=== PATIENT | male | born 1950 | race Caucasian/White ===

== ENCOUNTER 2017-10-01 08:00 | Outpatient (RCR) | payer OTHER, SELFPAY ==
--- NOTE | 2017-08-26 09:25 | HP.OTEVAL ---
Patient's Visit Information ZAK STAPLETON is a 66 year old M, referred to Occupational Therapy by Carmelo Westfall MD,, with a diagnosis of Post-tramatic osteoarthritis right wrist. Date of Evaluation: 08/26/17 Occupational Therapist: Breanna Juárez, WILMA/Madeline, CHT - Subjective Subjective: This 66 year old male is well known to this facility. Pt states he struggled for over a year with right wrist pain. pt states he attempted to return to work last sping but after 5 weeks of work he was unable to cont. due to his wrist pain. Pt states at 2016 he underwent a ulnar shortening osteotomy. Pt states three weeks following sx he had very little pain and currently has little to no pain depending on what he does. 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 level with home mtg and work tasks by d/c Goal:: Pt will demo a increase in right forearm supination to 80 degress or more for pt to return to BADLS and IADLS at ind. level by d/c Goal:: pt will report pain no greater than 1/10 with use of right UE/hand for BADLS and IADLS by d/c - Rehabilitation General Assessment: S/P ulnar shortening osteotomy right forearm on 06-19-17- Pt demo with decreased right forearm supination and right photofinishing laboratory worker strength limiting pts ind. with his BADLs and IADLS. Pt demo a need for skilled OT services to return pt to PLOF Rehabilitation Potential: Good - Anticipated Interventions Anticipated Interventions: A/AAROM/PROM, Strengthening, Triggerpoint Release, Modalities, Home Program - Visit Plan Frequency: 2x /Week Duration: 6 Weeks General Plan: PT will be seen in OT 2xweek for 6 weeks for 12 visits. Therapy will initaite with ROM and PRE to return pt to PLOF- will work in a pain free ROM with PRE and use modalities as needed. TEXT: Thank you for the opportunity to evaluate your patient. For Medicare and Medicare HMO plans, please review the plan of care and approve it. It will need to be FAXED BACK to us at [phone] for Medicare purposes. Please let me know if there are questions or concerns regarding this plan of care. Physician Signature: Date:
--- NOTE | 2017-10-01 08:20 | HP.OTDCSUM ---
HP - OT D/C Summary It has been my pleasure to treat ZAK STAPLETON under orders from Carmelo Westfall MD, for the diagnosis of Post-tramatic osteoarthritis right wrist for a total of 12 visit(s). Please see the following information for a summary of their discharge status. - Overall Improvement % Improvement: 60 - due to pt need for compensitory kristal. - Objective Objective/Function: pt demo right wrist ROM 50/50. right forearm supination 60 increase from 50 degrees. 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 left beautician apprentice strength 80# - Goals Patient Goals: Regain Mobility, Regain Strength, Return to Work, Use Hand/Wrist/Arm Normally Again, Be More Independent in ADLS, Resume Former Household Responsibilities (Cooking,Cleaning,Yard, etc.) Goal:: pt will demo a increase in right beautician apprentice strength to 55# or greater for pt to return to ind. level with home mtg and work tasks by d/c Goal:: Pt will demo a increase in right forearm supination to 80 degress or more for pt to return to BADLS and IADLS at ind. level by d/c Goal:: pt will report pain no greater than 1/10 with use of right UE/hand for BADLS and IADLS by d/c - Plan Plan: D/C - D/C Information Discharge Comments: Pt had 12 OT sessions for therapy to increase his functional strength, ROM and endurance of his right UE. PT did make gains but still demo limited forearm supination and wrist flex/ext- this is limiting pt with performing his BADLS, and IADLS at [facility]- pt is using compensitory kristal. to over come the limitations. Pt did demo a increase in right functional beautician apprentice strength but still demo limited endurance in right UE and beautician apprentice strength that limits his home mtg tasks. pt reports with attempting to use a rake he only can do so for about 30 min with frequent rest periods. pt is advised to cont. with HEP and increase work tasks as able. pt has met functional goals for BADLS and IADLS - pt to cont with HEP to assist in gaining more endurance for home mtg task. pt is D/C at this time. If there are questions or concerns regarding this patient's occupational therapy, please fell free to call me at [phone]. Thank you for the referral of this patient. Sincerely, Breanna Juárez, NORMR/Madeline, CHT
== END 2017-10-01 08:52 | disposition home or self-care (01) ==
LOC: OT 08:00
PROVIDERS: Family Provider Family Medicine; PCP Family Medicine; Visit Provider Orthopaedic Surgery
DX: M19.131 Post-traumatic osteoarthritis, right wrist (principal)
CPT/HCPCS: 97018; 97110; 97140; 97166; 97168

== ENCOUNTER → 2018-02-06 06:54 | Outpatient (CLI) | payer BC, SELFPAY ==
[2018-02-06 08:30] LABS: AST(SGOT) 23 U/L (15-37); Alanine Aminotransfer ALT/SGPT 33 U/L (16-61); Albumin, Serum 3.6 g/dL (3.2-5.0); Alkaline Phosphatase 85 U/L (45-117); Anion Gap 7 (5-15); BUN 23 mg/dL (7-18); BUN/Creat Ratio 26.2 RATIO (10-20); Calcium,Total 8.5 mg/dL (8.5-10.1); Chloride 109 mmol/L (98-107); Cholesterol 166 mg/dL (200); Creatinine, Serum 0.88 mg/dL (0.70-1.30); EST Glomerular Filtration Rate 92 mL/min (>60); Est Glom Filt Rate - Afr Amer 111 mL/min (>60); Globulin 3.5 g/dL (2.2-4.2); Glucose 101 mg/dL (74-106); High Density Lipoprotein 65 mg/dL; Potassium 4.4 mmol/L (3.5-5.1); Protein, Total 7.1 g/dL (6.4-8.2); Sodium Level 141 mmol/L (136-145); Triglycerides 76 mg/dL; Very Low Density Lipoprotein 15 mg/dL (5-40)
== END ==
PROVIDERS: Family Provider Family Medicine; PCP Family Medicine; Visit Provider Family Medicine
DX: I10 Essential (primary) hypertension (principal)
CPT/HCPCS: 36415; 80053; 80061

== ENCOUNTER → 2019-02-08 07:20 | Outpatient (CLI) | payer BC, SELFPAY ==
[2019-02-08 09:19] LABS: Anion Gap 8 (5-15); BUN 18 mg/dL (7-18); BUN/Creat Ratio 21.2 RATIO (10-20); Chloride 106 mmol/L (98-107); Creatinine, Serum 0.85 mg/dL (0.70-1.30); EST Glomerular Filtration Rate 95 mL/min (>60); Est Glom Filt Rate - Afr Amer 115 mL/min (>60); Glucose 101 mg/dL (74-106); PSA,Total - Annual Screen 0.67 ng/mL (0.00-4.00); Potassium 4.4 mmol/L (3.5-5.1); Sodium Level 139 mmol/L (136-145)
== END ==
PROVIDERS: Family Provider Family Medicine; PCP Family Medicine; Referring Provider Family Medicine; Visit Provider Family Medicine
DX: I10 Essential (primary) hypertension (principal); Z12.5 Encounter for screening for malignant neoplasm of prostate
CPT/HCPCS: 36415; 80048; 84153; G0103

== ENCOUNTER → 2020-04-14 07:18 | Outpatient (CLI) | payer BC, SELFPAY ==
[2020-04-14 08:24] LABS: ALB/GLOB Ratio 1.2 RATIO (0.9-2.4); AST(SGOT) 36 U/L (15-37); Alanine Aminotransfer ALT/SGPT 46 U/L (16-61); Albumin, Serum 4.1 g/dL (3.2-5.0); Alkaline Phosphatase 74 U/L (45-117); Anion Gap 5 (5-15); BUN 22 mg/dL (7-18); BUN/Creat Ratio 25.5 RATIO (10-20); Chloride 105 mmol/L (98-107); Cholesterol 174 mg/dL (200); Creatinine, Serum 0.86 mg/dL (0.70-1.30); EST Glomerular Filtration Rate 93 mL/min (>60); Est Glom Filt Rate - Afr Amer 113 mL/min (>60); Globulin 3.5 g/dL (2.2-4.2); Glucose 103 mg/dL (74-106); High Density Lipoprotein 66 mg/dL; PSA,Total - Annual Screen 0.74 ng/mL (0.00-4.00); Potassium 4.1 mmol/L (3.5-5.1); Protein, Total 7.6 g/dL (6.4-8.2); Sodium Level 137 mmol/L (136-145); Triglycerides 71 mg/dL; Very Low Density Lipoprotein 14 mg/dL (5-40)
== END ==
PROVIDERS: PCP Family Medicine; Referring Provider Family Medicine; Visit Provider Family Medicine
DX: I10 Essential (primary) hypertension (principal); E78.5 Hyperlipidemia, unspecified; Z12.5 Encounter for screening for malignant neoplasm of prostate
CPT/HCPCS: 36415; 80053; 80061; 84153; G0103

== ENCOUNTER → 2021-04-15 09:21 | Outpatient (CLI) | payer BC, SELFPAY ==
[2021-04-15 10:49] LABS: AST(SGOT) 29 U/L (15-37); Alanine Aminotransfer ALT/SGPT 33 U/L (16-61); Albumin, Serum 3.9 g/dL (3.2-5.0); Alkaline Phosphatase 78 U/L (45-117); Anion Gap 10 (5-15); BUN 13 mg/dL (7-18); BUN/Creat Ratio 16.5 RATIO (10-20); Calcium,Total 9.1 mg/dL (8.5-10.1); Chloride 103 mmol/L (98-107); Cholesterol 150 mg/dL (200); Creatinine, Serum 0.79 mg/dL (0.70-1.30); EST Glomerular Filtration Rate 103 mL/min (>60); Est Glom Filt Rate - Afr Amer 125 mL/min (>60); Globulin 3.9 g/dL (2.2-4.2); Glucose 100 mg/dL (74-106); High Density Lipoprotein 63 mg/dL; PSA,Total- Diagnostic 0.99 ng/mL (0.0-4.0); Potassium 4.4 mmol/L (3.5-5.1); Protein, Total 7.8 g/dL (6.4-8.2); Sodium Level 137 mmol/L (136-145); Triglycerides 60 mg/dL; Very Low Density Lipoprotein 12 mg/dL (5-40)
== END ==
PROVIDERS: PCP Family Medicine; Visit Provider Family Medicine
DX: E78.5 Hyperlipidemia, unspecified (principal); Z12.5 Encounter for screening for malignant neoplasm of prostate
CPT/HCPCS: 36415; 80053; 80061; 84153

== ENCOUNTER → 2022-07-25 | Outpatient (CLI) | payer MEDICARE, SELFPAY ==
[2022-07-25 08:03] LABS: ALB/GLOB Ratio 1.1 RATIO (0.9-2.4); AST(SGOT) 15 U/L (15-37); Alanine Aminotransfer ALT/SGPT 21 U/L (16-61); Alkaline Phosphatase 82 U/L (45-117); Anion Gap 4 (5-15); BUN 20 mg/dL (7-18); BUN/Creat Ratio 23.5 RATIO (10-20); Calcium,Total 9.1 mg/dL (8.5-10.1); Chloride 104 mmol/L (98-107); Cholesterol 205 mg/dL (200); Creatinine, Serum 0.85 mg/dL (0.70-1.30); EST Glomerular Filtration Rate 94 mL/min (>60); Est Glom Filt Rate - Afr Amer 114 mL/min (>60); Globulin 3.7 g/dL (2.2-4.2); Glucose 112 mg/dL (74-106); High Density Lipoprotein 75 mg/dL; PSA,Total - Annual Screen 1.05 ng/mL (0.00-4.00); Potassium 4.2 mmol/L (3.5-5.1); Protein, Total 7.7 g/dL (6.4-8.2); Sodium Level 137 mmol/L (136-145); Triglycerides 69 mg/dL; Very Low Density Lipoprotein 14 mg/dL (5-40)
== END | disposition home or self-care (01) ==
PROVIDERS: PCP Family Medicine; Referring Provider Family Medicine; Visit Provider Family Medicine
DX: E78.5 Hyperlipidemia, unspecified (principal); Z12.5 Encounter for screening for malignant neoplasm of prostate
CPT/HCPCS: 36415; 80053; 80061; 84153; G0103

== ENCOUNTER → 2023-05-05 | Outpatient (CLI) | payer MEDICARE, SELFPAY ==
[2023-05-05 08:09] LABS: Cholesterol 171 mg/dL (200); High Density Lipoprotein 65 mg/dL; Triglycerides 116 mg/dL; Very Low Density Lipoprotein 23 mg/dL (5-40)
== END | disposition home or self-care (01) ==
LOC: LAB 06:03
PROVIDERS: PCP Family Medicine; Referring Provider Family Medicine; Visit Provider Family Medicine
DX: E78.5 Hyperlipidemia, unspecified (principal)
CPT/HCPCS: 36415; 80061

== ENCOUNTER → 2023-11-17 | Outpatient (CLI) | payer MEDICARE, SELFPAY ==
[2023-11-17 16:00] LABS: AST(SGOT) 35 U/L (15-37); Alanine Aminotransfer ALT/SGPT 37 U/L (16-61); Albumin, Serum 3.7 g/dL (3.2-5.0); Alkaline Phosphatase 83 U/L (45-117); Anion Gap 7 (5-15); BUN 18 mg/dL (7-18); BUN/Creat Ratio 22.1 RATIO (10-20); Calcium,Total 9.1 mg/dL (8.5-10.1); Chloride 105 mmol/L (98-107); Creatinine, Serum 0.81 mg/dL (0.70-1.30); EST Glomerular Filtration Rate 99 mL/min (>60); Est Glom Filt Rate - Afr Amer 120 mL/min (>60); Globulin 3.7 g/dL (2.2-4.2); Glucose 103 mg/dL (74-106); PSA,Total - Annual Screen 1.59 ng/mL (0.00-4.00); Potassium 4.2 mmol/L (3.5-5.1); Protein, Total 7.4 g/dL (6.4-8.2); Sodium Level 134 mmol/L (136-145)
== END | disposition home or self-care (01) ==
LOC: MFPLAB 11:49
PROVIDERS: PCP Family Medicine; Visit Provider Family Medicine
DX: Z12.5 Encounter for screening for malignant neoplasm of prostate (principal); E78.5 Hyperlipidemia, unspecified
CPT/HCPCS: 36415; 80053; 84153; G0103

== ENCOUNTER → 2024-10-24 | Outpatient (CLI) | payer MEDICARE, SELFPAY ==
[2024-10-24 13:42] LABS: ALB/GLOB Ratio 1.4 RATIO (0.9-2.4); AST(SGOT) 38 U/L (<=37); Alanine Aminotransfer ALT/SGPT 26 U/L (<=46); Albumin, Serum 4.4 g/dL (3.4-4.8); Alkaline Phosphatase 79 U/L (40-129); Anion Gap 14 (5-15); BUN 17 mg/dL (4-19); BUN/Creat Ratio 21.6 RATIO (10-20); Calcium,Total 9.6 mg/dL (7.6-11.0); Carbon Dioxide 22.8 mmol/L (21.0-32.0); Chloride 102 mmol/L (98-108); Cholesterol 184 mg/dL (<=200); Creatinine, Serum 0.77 mg/dL (0.70-1.20); EST Glomerular Filtration Rate 95 (>60); Globulin 3.1 g/dL (2.2-4.2); Glucose 102 mg/dL (70-99); High Density Lipoprotein 70 mg/dL; Low Density Lipoprotein Calc. 89 mg/dL; Potassium 4.3 mmol/L (3.3-5.1); Protein, Total 7.5 g/dL (5.9-8.4); Sodium Level 138 mmol/L (133-145); Total Bilirubin 0.86 mg/dL (0.00-1.30); Triglycerides 128 mg/dL; Very Low Density Lipoprotein 26 mg/dL (5-40); cholesterol:hdl ratio screen 2.65
== END | disposition home or self-care (01) ==
LOC: MFPLAB 10:33
PROVIDERS: PCP Family Medicine; Referring Provider Family Medicine; Visit Provider Family Medicine
DX: R73.01 Impaired fasting glucose (principal); Z12.5 Encounter for screening for malignant neoplasm of prostate
CPT/HCPCS: 36415; 80053; 80061

== ENCOUNTER → 2025-05-23 | Outpatient (CLI) | payer MEDICARE, SELFPAY ==
--- OUTSIDE RECORDS SUMMARY | 2025-05-23 06:16 | XMS RPT_ITS | CCD ---
Author Organization [facility] Care Team Providers Care Bowstring Maker Name Role Phone Keisha DE LEON, Dr. Blue Primary Care Provider Keisha DE LEON, Dr. Blue Attending Provider 1( [phone] Keisha DE LEON, Dr. Blue Referring Provider Mirza Valdes Referring Unavailable Mirza Valdes Attending Unavailable Mirza Valdes Primary Care Unavailable Mirza Valdes Attending Unavailable Mirza Valdes Primary Care Unavailable Medications Current Medications Medication Drug Class(es) Dates Sig (Normalized) Sig (Original) acetaminophen 325 mg / oxyCODONE hydrochloride 5 mg oral tablet (4 sources) Opioid Agonist Start: 07-23-2015 Oxycodone-Acetamin ophen 1 TABLET tablet Active 1 - 2 {tbl} PO EVERY 4 HOURS NEEDED as needed for Pain July 23, 2015 1:00am Start: 07-23-2015 take 1 tablet by coleen th every four hours as needed Oxycodone-Acetaminophen Active 1 - 2 TABLET PO EVERY 4 HOURS NEEDED July 23, 2015 1:00am aspirin 81 mg delayed release oral tablet (4 sources) Platelet Aggregation Inhibitor, Nonsteroidal Anti-inflammatory Drug Start: 07-23-2015 take 1 tablet by mouth once daily Aspirin 81 MG tablet Active 81 mg PO DAILY@0800 July 23, 2015 1:00am atorvastatin 40 mg oral tablet (4 sources) HMG-CoA Reductase Inhibitor Start: 07-23-2015 take 1 tablet by mouth at bedtime Atorvastatin 40 MG tablet Active 40 mg PO AT BEDTIME July 23, 2015 1:00am cephalexin 500 mg oral capsule (4 sources) Cephalosporin Antibacterial Start: 07-23-2015 take 1 capsule by mouth every six hours Cephalexin 500 MG capsule Active 500 mg PO EVERY 6 HOURS 40 July 23, 2015 1:00am hydroCHLOROthiazide 12.5 mg / lisinopril 20 mg oral tablet (4 sources) Thiazide Diuretic, Angiotensin Converting Enzyme Inhibitor Start: 07-23-2015 Lisinopril-Fairlee chlorothiazide 1 EACH tablet Active 1 {tbl} PO DAILY July 23, 2015 1:00am Start: 07-23-2015 take 1 tablet by coleen th once daily Lisinopril-Hydrochlorothiazide Active 1 TABLET PO DAILY July 23, 2015 1:00am Problems Active Problems Problem Classification Problem Date Documented Da te Episodic/Chronic Diabetes mellitus without complication (1 source) Impaired fasting glucose; Translations: [Impaired fasting glucose] Onset: 10-28-2024 Episodic Past or Other Problems Problem Classification Problem Date Documented Da te Episodic/Chronic Other screening for suspected conditions (not mental disorders or infectious disease) (1 source) Encounter for screening for malignant neoplasm of prostate; Translations: [Encounter for screening for malignant neoplasm of prostate] Onset: 11-26-2023 Episodic Results Test Name Value Interpretation Reference Range Facility Anion gap in Serum or Plasma Ordered By: Mirza Valdes on 10-24-2024 Anion gap [Moles/Vol] 14 mmol/L 5-15 [facility] BUN/creatinine ratioOrdered By: Mirza Valdes on 10-24-2024 Urea nitrogen/Creatinine [Mass ratio] 21.6 mg/mg High 10-20 [facility] Bilirubin, totalOrdered By: Mirza Valdes on 10-24-2024 Bilirubin [Mass/Vol] 0.86 mg/dL 0.00-1.30 [facility] Calculated very low density lipoprotein (VLDL) cholesterol measurementOrdered By: Mirza Valdes on 10-24-2024 VLDL Cholesterol 26 mg/dL 5-40 [facility] Carbon dioxide, total [Moles /volume] in Central venous bloodOrdered By: Mirza Valdes on 10-24-2024 CO2 [Moles/Vol] 22.8 mmol/L 21.0-32.0 [facility] Chloride assayOrdered By: Maura Valdes on 10-24-2024 Chloride [Moles/Vol] 102 mmol/L 98-108 [facility] Comprehensive Metabolic Prof ilon 10-24-2024 Albumin [Mass/Vol] 4.4 g/dL Normal 3.4-4.8 [facility] Comment on above: Order Comment: Order Date: 10/24/24 Order Info: [id number] - CMP Order Info: [id number] - LIPID Performed By: #### L 500.4100, L500.4050 #### [facility] [address] [place], [address] Albumin/Globulin [Mass ratio] 1.4 {ratio} Normal 0.9-2.4 [facility] Comment on above: Order Comment: Order Date: 10/24/24 Order Info: [id number] - CMP Order Info: [id number] - LIPID Performed By: #### L 500.4100, [id number] #### [facility] [address] [place], [address] ALK PHOS 79 U/L Normal 40-129 [facility] Comment on above: Order Comment: Order Date: 10/24/24 Order Info: [id number] - CMP Order Info: [id number] - LIPID Performed By: #### L 500.4100, [id number] #### [facility] [address] [place], [address] ALT [Catalytic activity/Vol] 26 U/L Normal <=46 [facility] Comment on above: Order Comment: Order Date: 10/24/24 Order Info: [id number] - CMP Order Info: [id number] - LIPID Performed By: #### L 500.4100, [id number] #### [facility] [address] [place], [address] AST [Catalytic activity/Vol] 38 U/L Normal <=37 [facility] Comment on above: Order Comment: Order Date: 10/24/24 Order Info: [id number] - CMP Order Info: [id number] - LIPID Performed By: #### L 500.4100, [id number] #### [facility] [address] [place], [address] Bilirubin [Mass/Vol] 0.86 mg/dL Normal 0.00-1.30 [facility] Comment on above: Order Comment: Order Date: 10/24/24 Order Info: [id number] - CMP Order Info: [id number] - LIPID Performed By: #### L 500.4100, [id number] #### [facility] [address] [place], [address] BUN/CRE 21.6 RATIO High 10-20 [facility] Comment on above: Order Comment: Order Date: 10/24/24 Order Info: [id number] - CMP Order Info: [id number] - LIPID Performed By: #### L 500.4100, [id number] #### [facility] [address] [place], [address] Calcium [Mass/Vol] 9.6 mg/dL Normal 7.6-11.0 [facility] Comment on above: Order Comment: Order Date: 10/24/24 Order Info: [id number] - CMP Order Info: [id number] - LIPID Performed By: #### L 500.4100, [id number] #### [facility] [address] [place], [address] Chloride [Moles/Vol] 102 mmol/L Normal 98-108 [facility] Comment on above: Order Comment: Order Date: 10/24/24 Order Info: [id number] - CMP Order Info: [id number] - LIPID Performed By: #### L 500.4100, [id number] #### [facility] [address] [place], [address] CO2 [Moles/Vol] 22.8 mmol/L Normal 21.0-32.0 [facility] Comment on above: Order Comment: Order Date: 10/24/24 Order Info: [id number] - CMP Order Info: [id number] - LIPID Performed By: #### L 500.4100, [id number] #### [facility] [address] [place], [address] Creatinine [Mass/Vol] 0.77 mg/dL Normal 0.70-1.20 [facility] Comment on above: Order Comment: Order Date: 10/24/24 Order Info: [id number] - CMP Order Info: [id number] - LIPID Performed By: #### L 500.4100, [id number] #### [facility] [address] [place], [address] GAP 14 Normal 5-15 [facility] Comment on above: Order Comment: Order Date: 10/24/24 Order Info: [id number]- - CMP Order Info: [id number] - LIPID Performed By: #### L 500.4100, [id number] #### [facility] [address] [place], [address] GFR/1.73 sq M.predicted among non-blacks MDRD (S/P/Bld) [Vol rate/Area] 95 mL/min/{1.73_m2} Normal >60 [facility] Comment on above: Order Comment: Order Date: 10/24/24 Order Info: [id number] - CMP Order Info: [id number] - LIPID Result Comment: mL/m in/1.73m2 CKD-EPI Creatinine Equation (2020) Performed By: #### L 500.4100, [id number] #### [facility] [address] [place], [address] Globulin (S) [Mass/Vol] 3.1 g/dL Normal 2.2-4.2 [facility] Comment on above: Order Comment: Order Date: 10/24/24 Order Info: 0786- - CMP Order Info: [id number] - LIPID Performed By: #### L 500.4100, [id number] #### [facility] [address] [place], [address] Glucose [Mass/Vol] 102 mg/dL High 70-99 [facility] Comment on above: Order Comment: Order Date: 10/24/24 Order Info: [id number] - CMP Order Info: [id number] - LIPID Performed By: #### L 500.4100, [id number] #### [facility] [address] [place], [address] Potassium [Moles/Vol] 4.3 mmol/L Normal 3.3-5.1 [facility] Comment on above: Order Comment: Order Date: 10/24/24 Order Info: [id number] - CMP Order Info: [id number] - LIPID Performed By: #### L 500.4100, [id number] #### [facility] [address] [place], [address] Sodium [Moles/Vol] 138 mmol/L Normal 133-145 [facility] Comment on above: Order Comment: Order Date: 10/24/24 Order Info: 0786 - CMP Order Info: [id number] - LIPID Performed By: #### L 500.4100, [id number] #### [facility] [address] [place], [address] T PROT 7.5 g/dL Normal 5.9-8.4 [facility] Comment on above: Order Comment: Order Date: 10/24/24 Order Info: [id number]- - CMP Order Info: [id number] - LIPID Performed By: #### L 500.4100, [id number] #### [facility] [address] [place], [address] Urea nitrogen [Mass/Vol] 17 mg/dL Normal 4-19 [facility] Comment on above: Order Comment: Order Date: 10/24/24 Order Info: [id number] - CMP Order Info: [id number] - LIPID Performed By: #### L 500.4100, [id number] #### [facility] [address] [place], [address] GFR/1.73 sq M.predicted mariano g non-blacks MDRD (S/P/Bld) [Vol rate/Area]Ordered By: Mirza Valdes on 10-24-2024 Estimated GFR (MDRD) Non-Af Amer 95 >60 [facility] Comment on above: mL/min/1.73m2 CKD-EP I Creatinine Equation (2020) LDL calc ser/plasOrdered By: Mirza Valdes on 10-24-2024 LDL Cholesterol, Calculated 89 mg/dL [facility] Comment on above: Affqgnrpra=891-586 m g/dL & Higher Pqos=832 mg/dL or greater Laboratory - Chemistry and C hemistry - challengeOrdered By: Mirza Valdes on 10-24-2024 AST [Catalytic activity/Vol] 38 U/L <38 [facility] Lipid Profileon 10-24-2024 CHOL:HDL 2.65 Normal [facility] Comment on above: Order Comment: Order Date: 10/24/24 Order Info: 0786-1 - CMP Order Info: [id number] - LIPID Performed By: #### L 500.4100, [id number] #### [facility] [address] [place], [place], [address] Cholesterol [Mass/Vol] 184 mg/dL Normal <=200 [facility] Comment on above: Order Comment: Order Date: 10/24/24 Order Info: 0786-1 - CMP Order Info: [id number] - LIPID Result Comment: Chol esterol level, Desirable <200 mg/dL Borderline high cholesterol 200-239 mg/dL High cholesterol >=240 mg/dL Recommendations of the NCEP Adult Treatment Panel for the following risk-cutoff thresholds for the [place] population. Performed By: #### L 500.4100, [id number] #### [facility] [address] [place], [place], [address] Cholesterol in HDL [Mass/Vol] 70 mg/dL Normal [facility] Comment on above: Order Comment: Order Date: 10/24/24 Order Info: 0786-1 - CMP Order Info: [id number] - LIPID Result Comment: Lauryn onal Cholesterol Education Program (NCEP) guidelines: <40 mg/dL: Low HDL-cholesterol (major risk factor for CHD) >= 60 mg/dL: High HDL-cholesterol (negative risk factor for CHD) HDL-cholesterol is affected by a number of factors, e.g. smoking, exercise, hormones, sex and age. Performed By: #### L 500.4100, [id number] #### [facility] [address] [place], [address] Cholesterol in LDL [Mass/Vol] 89 mg/dL Normal [facility] Comment on above: Order Comment: Order Date: 10/24/24 Order Info: 0786-1 - CMP Order Info: [id number] - LIPID Result Comment: Bord zxjxom=654-530 mg/dL Higher Tnfv=440 mg/dL or greater Performed By: #### L 500.4100, [id number] #### [facility] [address] [place], [address] Cholesterol in VLDL [Mass/Vol] 26 mg/dL Normal 5-40 [facility] Comment on above: Order Comment: Order Date: 10/24/24 Order Info: 0786-1 - CMP Order Info: [id number] - LIPID Performed By: #### L 500.4100, [id number] #### [facility] [address] [place], [address] Triglyceride [Mass/Vol] 128 mg/dL Normal [facility] Comment on above: Order Comment: Order Date: 10/24/24 Order Info: [id number] - CMP Order Info: [id number] - LIPID Result Comment: The drugs N-Acetylcysteine and Metamizole may falsely depress this assay. Normal range: <150 mg/dL Borderline High: 150-199 mg/dL High: 200-499 mg/dL Very High: >500 mg/dL Performed By: #### L 500.4100, L500.4050 #### [facility] [address] [place], [address] Potassium (Unsp spec) [Mass/ Vol]Ordered By: Mirza Valdes on 10-24-2024 Potassium [Moles/Vol] 4.3 mmol/L 3.3-5.1 [facility] Screening total cholesterol/ high density lipoprotein (HDL) cholesterol ratioOrdered By: Mirza Valdes on 10-24-2024 Cholesterol.total/[place] sterol in HDL [Mass ratio] 2.65 {ratio} [facility] Serum creatinine measurement (mass/volume)Ordered By: Mirza Valdes on 10-24-2024 Creatinine [Mass/Vol] 0.77 mg/dL 0.70-1.20 [facility] Serum globulin measurementOr dered By: Mirza Valdes on 10-24-2024 Globulin (S) [Mass/Vol] 3.1 g/dL 2.2-4.2 [facility] Serum glucose measurement (m ass/volume)Ordered By: Mirza Valdes on 10-24-2024 Glucose [Mass/Vol] 102 mg/dL High 70-99 [facility] Serum or plasma alanine singer otransferase (ALT) measurementOrdered By: Mirza Valdes on 10-24-2024 ALT [Catalytic activity/Vol] 26 U/L <47 [facility] Serum or plasma albumin heath urement (mass/volume)Ordered By: Mirza Valdes on 10-24-2024 Albumin [Mass/Vol] 4.4 g/dL 3.4-4.8 [facility] Serum or plasma albumin/glob ulin mass ratioOrdered By: Mirza Valdes on 10-24-2024 Albumin/Globulin [Mass ratio] 1.4 {ratio} 0.9-2.4 [facility] Serum or plasma alkaline janes sphatase measurementOrdered By: Mirza Valdes on 10-24-2024 ALP [Catalytic activity/Vol] 79 U/L 40-129 [facility] Serum or plasma calcium heath urement (mass/volume)Ordered By: Mirza Valdes on 10-24-2024 Calcium [Mass/Vol] 9.6 mg/dL 7.6-11.0 [facility] Serum or plasma cholesterol in HDL measurement (mass/volume)Ordered By: Mirza Valdes on 10-24-2024 Cholesterol in HDL [Mass/Vol] 70 mg/dL >40 [facility] Comment on above: National Cholesterol Education Program (NCEP) guidelines:<40 mg/dL: Low HDL-cholesterol (major risk factor for CHD)>= 60 mg/dL: High HDL-cholesterol (negative risk factor for CHD)HDL-cholesterol is affected by a number of factors, e.g. smoking, exercise, hormones, sex and age. Serum or plasma cholesterol measurement (mass/volume)Ordered By: Mirza Valdes on 10-24-2024 Cholesterol [Mass/Vol] 184 mg/dL <201 [facility] Comment on above: Cholesterol level, D esirable <200 mg/dLBorderline high cholesterol 200-239 mg/dLHigh cholesterol >=240 mg/dLRecommendations of the NCEP Adult Treatment Panel for the following risk-cutoff thresholds for the [place] population. Serum or plasma urea nitroge n measurement (mass/volume)Ordered By: Mirza Valdes on 10-24-2024 Urea nitrogen [Mass/Vol] 17 mg/dL 4-19 [facility] Sodium levelOrdered By: Luciana Valdes on 10-24-2024 Sodium [Moles/Vol] 138 mmol/L 133-145 [facility] Total proteinOrdered By: Avinash Valdes on 10-24-2024 Protein [Mass/Vol] 7.5 g/dL 5.9-8.4 [facility] Triglycerides measurementOrd ered By: Mirza Valdes on 10-24-2024 Triglyceride [Mass/Vol] 128 mg/dL <199 [facility] Comment on above: The drugs N-Acetylcy steine and Metamizole may falsely depress this assay. Normal range: <150 mg/dLBorderline High: 150-199 mg/dLHigh: 200-499 mg/dLVery High: >500 mg/dL Basophil percentageOrdered B y: Mirza Valdes on 11-17-2023 Bilirubin [Mass/Vol] 0.90 mg/dL Normal 0.20-1.00 [facility] Comment on above: For patients on eltr ombopag therapy, use of Dimension [place] TBIL is not recommended. Order Comment: Order Date: 11/17/23 Order Info: 0786-1 - CMP Order Info: [id number] - PSA Result Comment: For patients on eltrombopag therapy, use of Dimension [place] TBIL is not recommended. Performed By: #### L 500.4050, [id number] #### [facility] [address] [place], [address] Chloride [Moles/Vol] 105 mmol/L Normal 98-107 [facility] Comment on above: Order Comment: Order Date: 11/17/23 Order Info: 0786-1 - CMP Order Info: [id number] - PSA Performed By: #### L 500.4050, [id number] #### [facility] [address] [place], [address] Glucose [Mass/Vol] 103 mg/dL Normal 74-106 [facility] Comment on above: Fasting Glucose resu lt from 100 to 125 mg/dL suggests IMPAIRED HOMEOSTASIS per A.D.A. criteria. Order Comment: Order Date: 11/17/23 Order Info: 0786 - CMP Order Info: [id number] - PSA Result Comment: Fast ing Glucose result from 100 to 125 mg/dL suggests IMPAIRED HOMEOSTASIS per A.D.A. criteria. Performed By: #### L 500.4050, [id number] #### [facility] [address] [place], [address] Potassium [Moles/Vol] 4.2 mmol/L Normal 3.5-5.1 [facility] Comment on above: Order Comment: Order Date: 11/17/23 Order Info: 0786- - CMP Order Info: [id number] - PSA Performed By: #### L 500.4050, [id number] #### [facility] [address] [place], [address] Protein [Mass/Vol] 7.4 g/dL 6.4-8.2 [facility] Sodium [Moles/Vol] 134 mmol/L Low 136-145 [facility] Comment on above: Order Comment: Order Date: 11/17/23 Order Info: 0786-1 - CMP Order Info: [id number] - PSA Performed By: #### L 500.4050, [id number] #### [facility] [address] [place], [address] Comprehensive Metabolic Prof ilon 11-17-2023 Albumin [Mass/Vol] 3.7 g/dL Normal 3.2-5.0 [facility] Comment on above: Order Comment: Order Date: 11/17/23 Order Info: 0786-1 - CMP Order Info: [id number] - PSA Performed By: #### L 500.4050, [id number] #### [facility] [address] [place], [address] ALK P 83 U/L Normal 45-117 [facility] Comment on above: Order Comment: Order Date: 11/17/23 Order Info: 0786-1 - CMP Order Info: [id number] - PSA Performed By: #### L 500.4050, [id number] #### [facility] [address] [place], [address] AST [Catalytic activity/Vol] 35 U/L Normal 15-37 [facility] Comment on above: Order Comment: Order Date: 11/17/23 Order Info: 0786-1 - CMP Order Info: [id number] - PSA Performed By: #### L 500.4050, [id number] #### [facility] [address] [place], [address] BUN/CRE 22.1 RATIO High 10-20 [facility] Comment on above: Order Comment: Order Date: 11/17/23 Order Info: 0786-1 - CMP Order Info: [id number] - PSA Performed By: #### L 500.4050, [id number] #### [facility] [address] [place], [address] CA,Total 9.1 mg/dL Normal 8.5-10.1 [facility] Comment on above: Order Comment: Order Date: 11/17/23 Order Info: 0786-1 - CMP Order Info: [id number] - PSA Performed By: #### L 500.4050, [id number] #### [facility] [address] [place], [address] EST GFR - AA 120 mL/min Normal >60 [facility] Comment on above: Order Comment: Order Date: 11/17/23 Order Info: [id number] - CMP Order Info: [id number] - PSA Result Comment: Afri can Thai GFR Calc Performed By: #### L 500.4050, [id number] #### [facility] [address] [place], [address] GAP 7 Normal 5-15 [facility] Comment on above: Order Comment: Order Date: 11/17/23 Order Info: [id number] - CMP Order Info: [id number] - PSA Performed By: #### L 500.4050, [id number] #### [facility] [address] [place], [address] GFR/1.73 sq M.predicted among non-blacks MDRD (S/P/Bld) [Vol rate/Area] 99 mL/min/{1.73_m2} Normal >60 [facility] Comment on above: Order Comment: Order Date: 11/17/23 Order Info: [id number] - CMP Order Info: [id number] - PSA Result Comment: Non- GFR Calc Performed By: #### L 500.4050, [id number] #### [facility] [address] [place], [address] T PROT 7.4 g/dL Normal 6.4-8.2 [facility] Comment on above: Order Comment: Order Date: 11/17/23 Order Info: [id number] - CMP Order Info: [id number] - PSA Performed By: #### L 500.4050, [id number] #### [facility] [address] [place], [address] Comprehensive Metabolic Prof ilOrdered By: Mirza Valdes on 11-17-2023 Albumin/Globulin [Mass ratio] 1.0 {ratio} Normal 0.9-2.4 [facility] Comment on above: Order Comment: Order Date: 11/17/23 Order Info: 0786-1 - CMP Order Info: [id number] - PSA Performed By: #### L 500.4050, [id number] #### [facility] [address] [place], [place], [id number] ALT [Catalytic activity/Vol] 37 U/L Normal 16-61 [facility] Comment on above: Order Comment: Order Date: 11/17/23 Order Info: 785- - CMP Order Info: [id number] - PSA Performed By: #### L 500.4050, [id number] #### [facility] [address] [place], [address] CO2 [Moles/Vol] 22.0 mmol/L Normal 21.0-32.0 [facility] Comment on above: Order Comment: Order Date: 11/17/23 Order Info: 07 - CMP Order Info: [id number] - PSA Performed By: #### L 500.4050, [id number] #### [facility] [address] [place], [address] Globulin (S) [Mass/Vol] 3.7 g/dL Normal 2.2-4.2 [facility] Comment on above: Order Comment: Order Date: 11/17/23 Order Info: 0786-1 - CMP Order Info: 1 - PSA Performed By: #### L 500.4050, [id number] #### [facility] [address] [place], [address] Laboratory - Chemistry and C hemistry - challengeOrdered By: Mirza Valdes on 11-17-2023 ALP [Catalytic activity/Vol] 83 U/L 45-117 [facility] Urea nitrogen/Creatinine [Mass ratio] 22.1 mg/mg 10-20 [facility] No Panel InformationOrdered By: Mirza Valdes on 11-17-2023 Estimated GFR (MDRD) Amer 120 mL/min >60 [facility] Comment on above: GFR Calc Estimated GFR (MDRD) Non-Af Amer 99 mL/min >60 [facility] Comment on above: Non- GFR Calc Prostate Specific Antigen Screen 1.59 ng/mL 0.00-4.00 [facility] Comment on above: This test was perfor med using the TPSA assay method for the[employer] chemistry system. Values obtained with differentassay methods cannot be used interchangably.When changing PSA assays in the course of monitoring apatient, additional sequential testing should be carriedout to confirm baseline values. PSA,Total - Annual Screenon 11-17-2023 PSA,TOT SCREEN 1.59 ng/mL Normal 0.00-4.00 [facility] Comment on above: Order Comment: Order Date: 11/17/23 Order Info: 0786-1 - CMP Order Info: [id number] - PSA Result Comment: This test was performed using the TPSA assay method for the [employer] chemistry system. Values obtained with different assay methods cannot be used interchangably. When changing PSA assays in the course of monitoring a patient, additional sequential testing should be carried out to confirm baseline values. Performed By: #### L 500.4050, L501.9910 #### [facility] [place], [address] Serum or plasma calcium heath urement (mass/volume)Ordered By: Mirza Valdes on 11-17-2023 Calcium [Mass/Vol] 9.1 mg/dL 8.5-10.1 [facility] Serum or plasma creatinine m easurement (mass/volume)Ordered By: Mirza Valdes on 11-17-2023 Creatinine [Mass/Vol] 0.81 mg/dL Normal 0.70-1.30 [facility] Comment on above: The validity of the calculated GFR & GFRAA in patients over 70 years has not been determined. Clinical correlation is essential. Order Comment: Order Date: 11/17/23 Order Info: [id number] - CMP Order Info: [id number] - PSA Result Comment: The validity of the calculated GFR GFRAA in patients over 70 years has not been determined. Clinical correlation is essential. Performed By: #### L 500.4050, L501.9910 #### [facility] [address] [place], [address] Serum or plasma urea nitroge n measurement (mass/volume)Ordered By: Mirza Valdes on 11-17-2023 Urea nitrogen [Mass/Vol] 18 mg/dL Normal 7-18 [facility] Comment on above: Order Comment: Order Date: 11/17/23 Order Info: [id number] - CMP Order Info: [id number] - PSA Performed By: #### L 500.4050, L501.9910 #### [facility] [address] [place], [place], [address] Thin prep Papanicolaou smear with manual screeningOrdered By: Mirza Valdes on 11-17-2023 Thin prep Papanicolaou smear with manual screening 3.7 g/dL 3.2-5.0 [facility] Thin prep Papanicolaou smear with manual screening 35 U/L 15-37 [facility] Thin prep Papanicolaou smear with manual screening 7 5-15 [facility] Basophil percentageOrdered B y: Wayne Valdes on 05-05-2023 Cholesterol [Mass/Vol] 171 mg/dL <200 [facility] Comment on above: <200 mg/dL Desirable 200-240 mg/dL Borderline >240 mg/dL High Risk Triglyceride [Mass/Vol] 116 mg/dL <199 [facility] Comment on above: The drugs N-Acetylcy steine and Metamizole may falsely depress this assay.Serum Triglycerides Reference Interval Normal <150 mg/dL Borderline high 150 - 199 mg/dL High 200 - 499 mg/dL Very High > or = 500 mg/dL Serum or plasma cholesterol in HDL measurement (mass/volume)Ordered By: Wayne Valdes on 05-05-2023 Cholesterol in HDL [Mass/Vol] 65 mg/dL >40 [facility] Comment on above: The drugs N-Acetylcy steine and Metamizole may falsely depress this assay. Reference Range HDL <40 mg/dL Low HDL Cholesterol HDL >or= 60 mg/dL High HDL Cholesterol Serum or plasma cholesterol in VLDL measurement (mass/volume)Ordered By: Wayne Valdes on 05-05-2023 Cholesterol in VLDL [Mass/Vol] 23 mg/dL 5-40 [facility] Serum or plasma low density lipoprotein (LDL) cholesterol measurement (mass/volume)Ordered By: Wayne Valdes on 05-05-2023 Cholesterol in LDL [Mass/Vol] 83 mg/dL 0-130 [facility] Basophil percentageOrdered B y: Dr. Valdes on 07-25-2022 Bilirubin [Mass/Vol] 0.50 mg/dL 0.20-1.00 [facility] Comment on above: For patients on eltr ombopag therapy, use of Dimension [place] TBIL is not recommended. Chloride [Moles/Vol] 104 mmol/L 98-107 [facility] Cholesterol [Mass/Vol] 205 mg/dL <200 [facility] Comment on above: <200 mg/dL Desirable 200-240 mg/dL Borderline >240 mg/dL High Risk Glucose [Mass/Vol] 112 mg/dL 74-106 [facility] Comment on above: Fasting Glucose resu lt from 100 to 125 mg/dL suggests IMPAIRED HOMEOSTASIS per A.D.A. criteria. Potassium [Moles/Vol] 4.2 mmol/L 3.5-5.1 [facility] Protein [Mass/Vol] 7.7 g/dL 6.4-8.2 [facility] Sodium [Moles/Vol] 137 mmol/L 136-145 [facility] Triglyceride [Mass/Vol] 69 mg/dL <199 [facility] Comment on above: The drugs N-Acetylcy steine and Metamizole may falsely depress this assay.Serum Triglycerides Reference Interval Normal <150 mg/dL Borderline high 150 - 199 mg/dL High 200 - 499 mg/dL Very High > or = 500 mg/dL Laboratory - Chemistry and C hemistry - challengeOrdered By: Dr. Valdes on 07-25-2022 ALP [Catalytic activity/Vol] 82 U/L 45-117 [facility] ALT [Catalytic activity/Vol] 21 U/L 16-61 [facility] CO2 [Moles/Vol] 29.0 mmol/L 21.0-32.0 [facility] Globulin (S) [Mass/Vol] 3.7 g/dL 2.2-4.2 [facility] Urea nitrogen/Creatinine [Mass ratio] 23.5 mg/mg 10-20 [facility] No Panel InformationOrdered By: Dr. Valdes on 07-25-2022 Estimated GFR (MDRD) Amer 114 mL/min >60 [facility] Comment on above: GFR Calc Estimated GFR (MDRD) Non-Af Amer 94 mL/min >60 [facility] Comment on above: Non- GFR Calc Prostate Specific Antigen Screen 1.05 ng/mL 0.00-4.00 [facility] Comment on above: This test was perfor med using the TPSA assay method for [employer] chemistry system. Values obtained with differentassay methods cannot be used interchangably.When changing PSA assays in the course of monitoring apatient, additional sequential testing should be carriedout to confirm baseline values. Serum or plasma albumin heath urement (mass/volume)Ordered By: Dr. Valdes on 07-25-2022 Albumin [Mass/Vol] 4.0 g/dL 3.2-5.0 [facility] Serum or plasma albumin/glob ulin mass ratioOrdered By: Dr. Valdes on 07-25-2022 Albumin/Globulin [Mass ratio] 1.1 {ratio} 0.9-2.4 [facility] Serum or plasma calcium heath urement (mass/volume)Ordered By: Dr. Valdes on 07-25-2022 Calcium [Mass/Vol] 9.1 mg/dL 8.5-10.1 [facility] Serum or plasma cholesterol in HDL measurement (mass/volume)Ordered By: Dr. Valdes on 07-25-2022 Cholesterol in HDL [Mass/Vol] 75 mg/dL >40 [facility] Comment on above: The drugs N-Acetylcy steine and Metamizole may falsely depress this assay. Reference Range HDL <40 mg/dL Low HDL Cholesterol HDL >or= 60 mg/dL High HDL Cholesterol Serum or plasma cholesterol in VLDL measurement (mass/volume)Ordered By: Dr. Valdes on 07-25-2022 Cholesterol in VLDL [Mass/Vol] 14 mg/dL 5-40 [facility] Serum or plasma creatinine m easurement (mass/volume)Ordered By: Dr. Valdes on 07-25-2022 Creatinine [Mass/Vol] 0.85 mg/dL 0.70-1.30 [facility] Comment on above: The validity of the calculated GFR & GFRAA in patients over 70 years has not been determined. Clinical correlation is essential. Serum or plasma low density lipoprotein (LDL) cholesterol measurement (mass/volume)Ordered By: Dr. Valdes on 07-25-2022 Cholesterol in LDL [Mass/Vol] 116 mg/dL 0-130 [facility] Serum or plasma urea nitroge n measurement (mass/volume)Ordered By: Dr. Valdes on 07-25-2022 Urea nitrogen [Mass/Vol] 20 mg/dL 7-18 [facility] Thin prep Papanicolaou smear with manual screeningOrdered By: Dr. Valdes on 07-25-2022 Thin prep Papanicolaou smear with manual screening 15 U/L 15-37 [facility] Thin prep Papanicolaou smear with manual screening 4 5-15 [facility] Encounters Encounter Date Encounter Type Care Provider Facility Start: 10-24-2024 End: 10-24-[address] Mirza Valdes MD Work Phone: [facility] Work Phone: Start: 10-24-2024 End: 10-24-[address] [facility] Start: 10-24-2024 End: 10-24-2024 ambulatory Mirza Valdes Facility:[facility] Start: 11-17-2023 End: 11-17-2023 ambulatory [facility] Work Phone: Start: 11-17-2023 End: 11-17-2023 Patient encounter procedure [facility] Start: 11-17-2023 End: 11-17-2023 ambulatory Mirza Valdes Facility:[facility] Start: 05-05-2023 End: 05-05-2023 ambulatory [facility] Work Phone: Start: 05-05-2023 End: 05-05-2023 Patient encounter procedure [facility] Work Phone: Start: 07-25-2022 End: 07-25-2022 ambulatory [facility] Work Phone: Start: 07-25-2022 End: 07-25-2022 Patient encounter procedure [facility] Immunizations Immunization Date Immunization Notes Care Provider Oren caro 07-23-2015 tetanus toxoid, redu blanco diphtheria toxoid, and acellular pertussis vaccine, adsorbed [facility] Payers Date Payer Category Payer Medicare [id number] 2023 Private Health Insurance [id number] 2023 Self-pay [id number] Private Health Insurance [employer]ET[employer] [id number] Self-pay SELF PAY INSURANCE [id number] EDDI [id number] Unknown [id number] Unknown [id number] Social History Date Type Detail Facility Start: 07-31-2015 End: 07-31-2015 Tobacco smoking status NHIS Unknown if ever smoked [facility] Start: 1950 Sex Assigned At Male [facility]: 07[facility]31-[facility] Start: 10-28-2024 Sex Male (finding) [facility] Evaluation note Note Date & Type Note Facility Evaluation note No assessment information availa ble [facility] Work Phone: Reason for referral (narrative) Note Date & Type Note Facility Reason for referral (narrative) No reason for referral information available [facility] Work Phone: Chief Complaint and Reason for Visit Chief Complaint INT LABS Chief Complaint E ORDER Chief Complaint Admit Date E ORDERS October 24, 2024 10:3 3am Summary Purpose Family History No Family History Records Found Advance Directives No Advanced Directives Records Found Additional Source Comments Care Teams (unrecognized sec tion and content) Team Status: Active Member Role Status Dates Dr. Wayne Valdes MD Family Provider Active Dr. Wayne Valdes MD Primary Care Provider Activ e Team Status: Inactive Member Role Status Dates Dr. Wayne Valdes MD Primary Care Provider, Attending Provider, Referring Provider Active Team Status: Active Member Role Status Dates Dr. Mirza Valdes MD Family Provider Active Dr. Mirza Valdes MD Primary Care Provider Acti ve Team Status: Inactive Member Role Status Dates Dr. Mirza Valdes MD Primary Care Provider, Att ending Provider Active Team Status: Active Member Role Status Dates Dr. Mirza Valdes MD Primary Care Provider Acti ve Team Status: Inactive Member Role Status Dates Dr. Mirza Valdes MD Primary Care Provider Acti ve Start: October 24, 2024 End: October 24, 2024 Dr. Mirza Valdes MD Attending Provider Active Start: October 24, 2024 End: October 24, 2024 Dr. Mirza Valdes MD Referring Provider Active Start: October 24, 2024 End: October 24, 2024 Goals (unrecognized section and content) Goals may be documented in a n alternate sectionGoals may be documented in an alternate sectionGoals may be documented in an alternate sectionGoals may be documented in an alternate section (unrecognized sect ion and content) No Status Records Found INFORMATION SOURCE (unrecogn ized section and content) DATE CREATED AUTHOR 10/29/2024 [facility] FOR RECORDS PERTAINING TO PATIENTS WHO ARE OR HAVE BEEN ENROLLED IN A CHEMICAL DEPENDENCY/SUBSTANCEABUSE PROGRAM, SOME INFORMATION MAY BE OMITTED. This clinical summary was aggregated from multiple sources. Caution should be exercised in using it in the provision of clinical care. This summary normalizes information from multiple sources, and as a consequence, information in this document may materially change the coding, format and clinical context of patient data. In addition, data may be omitted in some cases. CLINICAL DECISIONS SHOULD BE BASED ON THE PRIMARY CLINICAL RECORDS. [facility]. provides no warranty or guarantee of the accuracy or completeness of information in this document.
[2025-05-23 07:37] LABS: AST(SGOT) 35 U/L (<=37); Alanine Aminotransfer ALT/SGPT 33 U/L (<=46); Albumin, Serum 4.3 g/dL (3.4-4.8); Alkaline Phosphatase 82 U/L (40-129); Anion Gap 10 (5-15); BUN 16 mg/dL (4-19); BUN/Creat Ratio 20.8 RATIO (10-20); Calcium,Total 9.3 mg/dL (7.6-11.0); Carbon Dioxide 25.2 mmol/L (21.0-32.0); Chloride 101 mmol/L (98-108); Cholesterol 259 mg/dL (<=200); Globulin 3.0 g/dL (2.2-4.2); Glucose 116 mg/dL (70-99); Low Density Lipoprotein Calc. 169 mg/dL; PSA,Total - Annual Screen 1.31 ng/mL (0.02-4.00); Potassium 4.6 mmol/L (3.3-5.1); Triglycerides 98 mg/dL; Very Low Density Lipoprotein 20 mg/dL (5-40); cholesterol:hdl ratio screen 3.52
== END | disposition home or self-care (01) ==
PROVIDERS: PCP Family Medicine; Referring Provider Family Medicine; Visit Provider Family Medicine
DX: Z12.5 Encounter for screening for malignant neoplasm of prostate (principal); R73.01 Impaired fasting glucose
CPT/HCPCS: 36415; 80053; 80061; 84153; G0103